=== PATIENT | male | born 1990 | race American Indian/Alaskan Native ===

== ENCOUNTER 2018-02-02 00:15 | Emergency (ER) | payer SELFPAY ==
[2018-02-02 01:50] LABS: Basophils % (Auto) 0.2 % (0.0-1.8); Eosinophils # (Auto) 0.1 K/mm3 (0.0-0.4); Eosinophils % (Auto) 0.5 % (0.0-4.3); Hematocrit 42.8 % (35.5-45.6); Hemoglobin 14.5 gm/dl (11.8-15.2); Lymphocytes # (Auto) 1.1 K/mm3 (1.2-5.4); Lymphocytes % (Auto) 11.2 % (13.4-35.0); Mean Corpuscular HGB Conc 34 % (32-34); Mean Corpuscular Hemoglobin 27 pg (28-32); Mean Corpuscular Volume 80 fl (84-94); Monocytes # (Auto) 0.6 K/mm3 (0.0-0.8); Monocytes % (Auto) 6.2 % (0.0-7.3); Platelet Count 275 K/mm3 (140-440); Red Blood Count 5.33 M/mm3 (3.65-5.03); Red Cell Distribution Width 14.4 % (13.2-15.2)
[2018-02-02 02:18] LABS: BUN/Creatinine Ratio 7; Blood Urea Nitrogen 6 mg/dL (9-20); Calcium 9.2 mg/dL (8.4-10.2); Hemolysis Index 39
[2018-02-02] MEDS ORDERED: DUONEB *Not for PRN Use IH ONE (04:33)
[2018-02-02] MEDS ORDERED: PROVENTIL IH ONE ×2 (04:37→04:43)
[2018-02-02] MEDS ORDERED: ATROVENT IH ONE (04:44)
[2018-02-02 05:53] VITALS: BP 112/46
--- NOTE | 2018-02-02 06:38 | Emergency Department Report ---
ED Shortness of Breath HPI - General Chief Complaint: Dyspnea/Respdistress Stated Complaint: LUIS ENRIQUE Time Seen by Provider: 02/02/18 04:07 Source: patient, EMS Mode of arrival: Stretcher Limitations: No Limitations - History of Present Illness Initial Comments: Patient presents with asthma exacerbation, reporting that he developed a sore throat over the past 24 hours, this has now progressed to recurrence of his typical wheezing symptoms. He's not had any fever chills or diaphoresis, but he was treated 1 week to 10 days ago at [facility], and reports that he generally gets his routine asthma care from emergency department visits , with no primary care doctor. He does not use walker dilators routinely, but he had some leftover prednisone, took a single dose of that, did not get any relief immediately, and came for further care. He is otherwise in good general health, takes no routine medications, and has not had any other significant symptoms. MD Complaint: shortness of breath -: Sudden Time: 12:00 Pain Scale: 0 Consistency: constant Improves With: nothing Worsens With: nothing Known History Of: asthma Context: recent URI Associated Symptoms: denies other symptoms Treatments Prior to Arrival: other (prednisone) - Related Data Previous Rx's Medication Instructions Recorded Last Taken Type ALBUTEROL NEB's [Proventil 0.083% 2.5 mg IH TID PRN #1 box 07/27/14 10/02/14 Rx NEBS] Ciprofloxacin HCl [Ciprofloxacin 500 mg PO Q12HR #14 tab 08/21/15 Unknown Rx TAB] Sulfamethoxazole/Trimethoprim 1 each PO BID #14 tablet 04/27/16 Unknown Rx [Bactrim DS TAB] ALBUTEROL Inhaler [ProAir HFA 2 puff IH QID PRN #1 inhalation 02/02/18 Unknown Rx Inhaler] Amoxicillin/Potassium Clav 1 each PO BID #14 tablet 02/02/18 Unknown Rx [Augmentin 875-125 Tablet] predniSONE [Deltasone] 10 mg PO .TAPER #15 tab 02/02/18 Unknown Rx Allergies Allergy/AdvReac Type Severity Reaction Status Date / Time No Known Allergies Allergy Verified 10/04/14 07:01 ED Review of Systems ROS: Stated complaint: LUIS ENRIQUE Other details as noted in HPI Comment: All other systems reviewed and negative Constitutional: denies: chills, diaphoresis, fever, malaise, weakness ENT: throat pain Respiratory: cough, shortness of breath, wheezing Cardiovascular: denies: chest pain Endocrine: no symptoms reported Gastrointestinal: denies: abdominal pain, nausea, diarrhea Musculoskeletal: denies: back pain, joint swelling, arthralgia Neurological: denies: headache, weakness, paresthesias Psychiatric: denies: anxiety, depression Hematological/Lymphatic: denies: easy bleeding, easy bruising ED Past Medical Hx - Past Medical History Previous Medical History?: Yes Hx Asthma: Yes - Surgical History Past Surgical History?: No - Social History Smoking Status: Never Smoker Substance Use Type: None - Medications Home Medications: Home Medications Medication Instructions Recorded Confirmed Last Taken Type ALBUTEROL NEB's [Proventil 0.083% 2.5 mg IH TID PRN #1 box 07/27/14 10/04/1409/15 Rx NEBS] Ciprofloxacin HCl [Ciprofloxacin 500 mg PO Q12HR #14 tab 08/21/15 Unknown Rx TAB] Sulfamethoxazole/Trimethoprim 1 each PO BID #14 tablet 04/27/16 Unknown Rx [Bactrim DS TAB] ALBUTEROL Inhaler [ProAir HFA 2 puff IH QID PRN #1 inhalation 02/02/18 Unknown Rx Inhaler] Amoxicillin/Potassium Clav 1 each PO BID #14 tablet 02/02/18 Unknown Rx [Augmentin 875-125 Tablet] predniSONE [Deltasone] 10 mg PO .TAPER #15 tab 02/02/18 Unknown Rx ED Physical Exam - General Limitations: No Limitations General appearance: alert, in distress (moderate wheezing, but speaks easily, full sentences) - Head Head exam: Present: atraumatic, normocephalic - Eye Eye exam: Present: PERRL, EOMI - ENT ENT exam: Present: other (moderately erythematous tonsils with mild enlargement) - Neck Neck exam: Present: normal inspection, tenderness (mild anterior cervical tenderness, minimal adenitis) - Respiratory Respiratory exam: Present: wheezes. Absent: respiratory distress, rales, rhonchi - Cardiovascular Cardiovascular Exam: Present: regular rate, normal heart sounds - GI/Abdominal GI/Abdominal exam: Present: soft. Absent: tenderness - Rectal Rectal exam: Present: deferred - Extremities Exam Extremities exam: Present: normal inspection. Absent: pedal edema - Back Exam Back exam: Present: normal inspection - Neurological Exam Neurological exam: Present: alert, oriented X3 - Psychiatric Psychiatric exam: Present: normal affect, normal mood - Skin Skin exam: Present: warm, dry, intact. Absent: diaphoretic ED Course Vital Signs 02/02/18 02/02/18 02/02/18 01:14 02:00 03:00 Temperature 98.6 F Pulse Rate 81 Pulse Rate [ Posterior Bilateral Throughout] Respiratory 24 Rate Respiratory Rate [Posterior Bilateral Throughout] Blood Pressure 138/69 135/79 133/73 Blood Pressure 138/69 [Left] O2 Sat by Pulse 100 94 97 Oximetry 02/02/18 02/02/18 02/02/18 04:30 04:53 05:00 Temperature Pulse Rate Pulse Rate [ 74 79 Posterior Bilateral Throughout] Respiratory Rate Respiratory 18 18 Rate [Posterior Bilateral Throughout] Blood Pressure 112/46 Blood Pressure [Left] O2 Sat by Pulse 97 Oximetry 02/02/18 06:01 Temperature Pulse Rate Pulse Rate [ Posterior Bilateral Throughout] Respiratory Rate Respiratory Rate [Posterior Bilateral Throughout] Blood Pressure 112/46 Blood Pressure [Left] O2 Sat by Pulse 95 Oximetry - Reevaluation(s) Reevaluation #1: 02/02/18 06:37 Patient treated with 5 mg albuterol as well as ipratropium, with significant improvement, resting comfortably at time of recheck. ED Medical Decision Making - Lab Data Result diagrams: 02/02/18 01:42 02/02/18 01:42 - EKG Data -: EKG Interpreted by Me (normal EKG, showing sinus rhythm at 70 bpm, with benign early repolarizatio) EKG shows normal: sinus rhythm, intervals, QRS complexes (normal QRS complexes) , ST-T waves (ST elevation consistent with benign early repolarization) Rate: normal - Radiology Data interpreted by me: Chest x-ray shows no acute cardiopulmonary findings. - Medical Decision Making Patient has had an acute recurrence of asthma with wheezing, and has secondary sore throat with significant erythema and mild exudate, but responded promptly to bronchodilator treatment. He gets inadequate care, primarily from financial concerns, and will be treated with inhalers, prednisone, and a brief course of Augmentin for control of upper respiratory symptoms and cough. He has sufficient quantities of albuterol ampules, haven't been prescribed this , and has home nebulizer. Work release provided for the next 2 days. - Differential Diagnosis asthma, pharyngitis, strep Critical Care Time: No Critical care attestation.: If time is entered above; I have spent that time in minutes in the direct care of this critically ill patient, excluding procedure time. ED Disposition Clinical Impression: Asthma exacerbation Qualifiers: Asthma severity: moderate Asthma persistence: unspecified Qualified Code(s): J45.901 - Unspecified asthma with (acute) exacerbation Disposition: - TO HOME OR SELFCARE Is pt being admited?: No Does the pt Need Aspirin: No Condition: Stable Prescriptions: ALBUTEROL Inhaler [ProAir HFA Inhaler] 2 puff IH QID PRN #1 inhalation PRN Reason: Shortness Of Breath Amoxicillin/Potassium Clav [Augmentin 875-125 Tablet] 1 each PO BID #14 tablet predniSONE [Deltasone] 10 mg PO .TAPER #15 tab Referrals: PRIMARY CARE, [Primary Care Provider] - 3-5 Days Forms: Work/School Release Form(ED) Time of Disposition: 06:45
[2018-02-02] MEDS ORDERED: DELTASONE PO ONE (06:45)
[2018-02-02] MEDS ORDERED: AUGMENTIN 875 MG PO ONE (06:45)
--- NOTE | 2018-02-02 14:03 | XRay Report ---
FINAL REPORT EXAM: XR CHEST ROUTINE 2V HISTORY: Shortness of breath TECHNIQUE: PA and lateral views of the chest were obtained. PRIORS: None. FINDINGS: There are no focal consolidations to suggest pneumonia. No large pleural effusion. No pneumothorax. Cardiac silhouette and mediastinal structures are unremarkable. No acute osseous abnormality identified. IMPRESSION: No radiographic evidence of acute cardiopulmonary disease.
== END 2018-02-02 07:14 | disposition home or self-care (01) ==
LOC: ED 00:15
DX: J45.901 Unspecified asthma with (acute) exacerbation (principal)
CPT/HCPCS: 36415; 71046; 80048; 85025; 93005; 93010; 94640; 99284; J7512